=== PATIENT | male | born 1965 | race Caucasian/White ===

== ENCOUNTER 2020-05-30 00:48 | Emergency (ER) | payer OTHER ==
[2020-05-30 01:11] VITALS: BMI 34.0
[2020-05-30 01:59] LABS: BASO % 0.5 % (0-2.0); EOS % 0.2 % (0-4.5); HEMATOCRIT 53.4 % (35.4-49); HEMOGLOBIN 17.9 GM/dL (11.7-16.9); LYMPH % 22.7 % (8-40); MCH 28.5 pg (25.7-33.7); MCHC 33.6 g/dl (32.0-35.9); MEAN CELL VOLUME 84.9 fl (80-96); MEAN PLT VOLUME 8.7 fl (7.5-11.1); MONO % 5.1 % (3.8-10.2); NEUT % 71.5 % (42.8-82.8); PLATELET COUNT 294 K/MM3 (134-434); WHITE BLOOD COUNT 6.7 K/mm3 (4.0-10.0)
--- NOTE | 2020-05-30 02:01 | PDOC ---
History of Present Illness - General Chief Complaint: Chest Pain Stated Complaint: INTOX Time Seen by Provider: 05/30/20 01:21 - History of Present Illness Initial Comments: History obtained via patient and family. Jose M Potts is a 54 y/o male with PMH significant for HTN (not on any medications) presenting to the ED with 3 weeks of chest pain. Describes the pain as pressure-like in sensation. Pain is on the left side of the chest. No pleuritic chest pain. Pain is non reproducible. Drank 4 pints of whiskey last night. No shortness of breath. No headache/dizziness. No nausea/vomiting. No cough. No fever/chills. No leg swelling. No abd pain. No diarrhea/constipation. SocHx: never smoker Past History - Medical History Allergies/Adverse Reactions: Allergies Allergy/AdvReac Type Severity Reaction Status Date / Time No Known Allergies Allergy Verified 05/30/20 02:39 Home Medications: Ambulatory Orders Valsartan [Diovan] 40 mg PO DAILY #30 tablet 05/30/20 COPD: No - Immunization History Immunization Up to Date: Yes - Psycho-Social/Smoking History Smoking History: Never smoked Have you smoked in the past 12 months: No Information on smoking cessation initiated: No - Substance Abuse Hx (Audit-C & DAST Scrn) How often the patient has a drink containing alcohol: 2-4 times / month How often the patient has six or more drinks on one occasion: Less than monthly Score: In Men: 4 or > Positive; In Women: 3 or > Positive: 3 Screen Result (Pos requires Nsg. Audit-10AR): Negative In the last yr the pt used illegal drug/Rx for NonMed reason: No Score: Yes response is considered Positive: 0 Screen Result (Positive result requires Nsg. DAST-10): Negative Review of Systems - Review of Systems Comments:: GENERAL/CONSTITUTIONAL: No fever or chills. No weakness._ HEAD, EYES, EARS, NOSE AND THROAT: No change in vision. No change in hearing. No sore throat._ CARDIOVASCULAR: Reports chest pain. No shortness of breath_ RESPIRATORY: Denies cough, hemoptysis_ GASTROINTESTINAL: No nausea, vomiting, diarrhea or constipation._ GENITOURINARY: No dysuria, frequency, or change in urination._ MUSCULOSKELETAL: No joint or muscle swelling or pain. No neck or back pain._ SKIN: No rash_ NEUROLOGIC: No headache, vertigo, loss of consciousness, or change in strength/sensation._ ENDOCRINE: No increased thirst. No abnormal weight change_ HEMATOLOGIC/LYMPHATIC: No anemia, easy bleeding, or history of blood clots._ ALLERGIC/IMMUNOLOGIC: No hives or skin allergy._ *Physical Exam - Vital Signs Last Vital Signs Temp Pulse Resp BP Pulse Ox 98.6 F 95 H 19 152/102 H 97 05/30/20 05:01 05/30/20 05:01 05/30/20 05:01 05/30/20 05:01 05/30/20 05:01 - Physical Exam GENERAL: Awake, alert, and oriented to person/place/time, in no acute distress_ HEAD: No signs of trauma, normocephalic, atraumatic _ EYES: PERRLA, EOMI, sclera anicteric, conjunctiva clear_ ENT: Hearing grossly normal, nares patent, oropharynx clear without exudates. No uvular deviation. Moist mucosa_ NECK: Normal ROM, supple, no lymphadenopathy, JVD, or masses_ CHEST: No obvious trauma. No TTP. No bruising or erythema or rash. LUNGS: No distress, speaks in full sentences, clear to auscultation bilaterally _ HEART: Regular rate and rhythm, normal S1 and S2, no murmurs appreciated, peripheral pulses normal and equal bilaterally._ ABDOMEN: Soft, nontender, normoactive bowel sounds. No guarding, no rebound. No masses_ EXTREMITIES: Normal inspection, Normal range of motion, no edema. No clubbing or cyanosis_ NEUROLOGICAL: Cranial nerves II through XII grossly intact. Normal speech, normal gait, no focal sensorimotor deficits _ SKIN: Warm, Dry, normal turgor, no rashes or lesions noted_ ED Treatment Course - LABORATORY CBC & Chemistry Diagram: 05/30/20 01:26 05/30/20 01:26 - ADDITIONAL ORDERS Additional order review: 05/30/20 01:26 RBC 6.30 H MCV 84.9 MCHC 33.6 RDW 14.0 MPV 8.7 Neutrophils % 71.5 Lymphocytes % 22.7 Monocytes % 5.1 Eosinophils % 0.2 Basophils % 0.5 - RADIOLOGY Radiology Studies Ordered: Category Date Time Status CHEST X-RAY PORTABLE* [RAD] Stat Radiology 05/30/20 01:29 Completed - Medications Given in the ED: ED Medications Discontinued Medications Generic Name Dose Route Start Last Admin Trade Name Janneth PRN Reason Stop Dose Admin Sodium Chloride 1,000 ml 05/30/20 02:37 05/30/20 03:16 Normal Saline - IV 05/30/20 02:38 1,000 ml ONCE ONE Administration Valsartan 40 mg 05/30/20 03:15 05/30/20 03:12 Diovan - PO 05/30/20 03:16 40 mg ONCE ONE Administration Medical Decision Making - Medical Decision Making 05/30/20 02:26 54M presenting today with left sided pressure like chest pain. No shortness of breath. 05/30/20 02:27 EKG shows 98 bpm, NSR, QTc 480, no ST elevation, no axis deviation. 05/30/20 03:20 Labs reviewed. Laboratory Last Values WBC 6.7 K/mm3 (4.0-10.0) 05/30/20 01:26 RBC 6.30 M/mm3 (4.00-5.60) H 05/30/20 01:26 Hgb 17.9 GM/dL (11.7-16.9) H 05/30/20 01:26 Hct 53.4 % (35.4-49) H 05/30/20 01:26 MCV 84.9 fl (80-96) 05/30/20 01:26 MCH 28.5 pg (25.7-33.7) 05/30/20 01:26 MCHC 33.6 g/dl (32.0-35.9) 05/30/20 01:26 RDW 14.0 % (11.9-15.9) 05/30/20 01:26 Plt Count 294 K/MM3 (134-434) 05/30/20 01:26 MPV 8.7 fl (7.5-11.1) 05/30/20 01:26 Absolute Neuts (auto) 4.8 K/mm3 (1.5-8.0) 05/30/20 01:26 Neutrophils % 71.5 % (42.8-82.8) 05/30/20 01:26 Lymphocytes % 22.7 % (8-40) 05/30/20 01:26 Monocytes % 5.1 % (3.8-10.2) 05/30/20 01:26 Eosinophils % 0.2 % (0-4.5) 05/30/20 01:26 Basophils % 0.5 % (0-2.0) 05/30/20 01:26 Nucleated RBC % 0 % (0-0) 05/30/20 01:26 PT with INR 10.80 SEC (9.7-13.0) 05/30/20 01:26 INR 0.92 (0.83-1.09) 05/30/20 01:26 PTT (Actin FS) 26.2 SECONDS (25.2-36.5) 05/30/20 01:26 Sodium 139 mmol/L (136-145) 05/30/20 01:26 Potassium 3.9 mmol/L (3.5-5.1) 05/30/20 01:26 Chloride 104 mmol/L (98-107) 05/30/20 01:26 Carbon Dioxide 26 mmol/L (21-32) 05/30/20 01:26 Anion Gap 9 MMOL/L (8-16) 05/30/20 01:26 BUN 9.8 mg/dL (7-18) 05/30/20 01:26 Creatinine 1.2 mg/dL (0.55-1.3) 05/30/20 01:26 Est GFR (CKD-EPI)AfAm 80.10 05/30/20 01:26 Est GFR (CKD-EPI)NonAf 69.11 05/30/20 01:26 Random Glucose 154 mg/dL (74-106) H 05/30/20 01:26 Calcium 9.3 mg/dL (8.5-10.1) 05/30/20 01:26 Total Bilirubin 0.5 mg/dL (0.2-1) 05/30/20 01:26 AST 23 U/L (15-37) 05/30/20 01:26 ALT 55 U/L (13-61) 05/30/20 01:26 Alkaline Phosphatase 59 U/L (45-117) 05/30/20 01:26 Creatine Kinase 279 U/L (26-308) 05/30/20 01:26 Creatine Kinase Index 0.7 % (0.0-5.0) 05/30/20 01:26 CK-MB (CK-2) 2.0 ng/mL (0.5-3.6) 05/30/20 01:26 Troponin I < 0.02 ng/ml (0.00-0.05) 05/30/20 01:26 Total Protein 8.2 g/dl (6.4-8.2) 05/30/20 01:26 Albumin 4.5 g/dl (3.4-5.0) 05/30/20 01:26 05/30/20 04:31 CXR negative for acute chest pathology. Plan to d/c home with PCP f/u. All questions answered. Return precautions given. Pt verbalized understanding and agreement with plan. Discharge - Discharge Information Problems reviewed: Yes Clinical Impression/Diagnosis: Chest pain Condition: Stable Disposition: HOME - Admission No - Additional Discharge Information Prescriptions: Valsartan [Diovan] 40 mg PO DAILY #30 tablet - Follow up/Referral Referrals: [facility] [place] [facility] at [place] [Provider Group] - Patient Discharge Instructions Patient Printed Discharge Instructions: DI for Chest Pain Additional Instructions: Please make a follow up appointment with your primary care physician. If you experience any new, worsening, or concerning symptoms, including worsening chest pain, shortness of breath, cough, dizziness, or any other concerns, please return to the emergency department. - Post Discharge Activity
[2020-05-30 02:10] LABS: INR 0.92 (0.83-1.09); PROTHROMBIN TIME (PATIENT) 10.8 SEC (9.7-13.0)
[2020-05-30 02:12] LABS: ACTIVATED PTT 26.2 SECONDS (25.2-36.5)
[2020-05-30 02:22] LABS: ALBUMIN 4.5 g/dl (3.4-5.0); ALK PHOS 59 U/L (45-117); ANION GAP 9 MMOL/L (8-16); BILIRUBIN,TOTAL 0.5 mg/dL (0.2-1); BLOOD UREA NITROGEN 9.8 mg/dL (7-18); CALCIUM 9.3 mg/dL (8.5-10.1); CHLORIDE 104 mmol/L (98-107); CO2 26 mmol/L (21-32); CREATININE 1.2 mg/dL (0.55-1.3); GLUCOSE,RANDOM 154 mg/dL (74-106); POTASSIUM 3.9 mmol/L (3.5-5.1); SGOT/AST 23 U/L (15-37); SGPT/ALT 55 U/L (13-61); SODIUM 139 mmol/L (136-145); TOT PROT 8.2 g/dl (6.4-8.2)
[2020-05-30] MEDS ORDERED: SODIUM CHLORIDE 0.9% 500 ML INFUS.BAG IV ONE (02:37)
[2020-05-30] MEDS ORDERED: VALSARTAN 80 MG TABLET (UD) ONE (03:10)
[2020-05-30] MEDS ORDERED: VALSARTAN 40 MG TABLET (FP) PO ONE (03:15)
[2020-05-30 05:03] VITALS: BP 152/102; PULSE 95; TEMP 98.6
--- NOTE | 2020-05-30 14:03 | EKG ---
Test Reason : Blood Pressure : / mmHG Vent. Rate : 098 BPM Atrial Rate : 098 BPM P-R Int : 176 ms QRS Dur : 098 ms QT Int : 376 ms P-R-T Axes : 046 081 041 degrees QTc Int : 480 ms NORMAL SINUS RHYTHM PROLONGED QT ABNORMAL ECG NO PREVIOUS ECGS AVAILABLE Confirmed by FIDELIA KOENIG MD ([id number]) on 05/30/2020 2:02:37 PM Referred By: Confirmed By:FIDELIA KOENIG MD
--- NOTE | 2020-06-12 02:09 | PDOC ---
Documentation entered by Eileen Ashford SCRIBE, acting as scribe for Alyssa Lomeli MD. Alyssa Lomeli MD: This documentation has been prepared by the Dejon dowling Nirvannie, SCRIBE, under my direction and personally reviewed by me in its entirety. I confirm that the documentation accurately reflects all work, treatment, procedures, and medical decision making performed by me. Attending Attestation - Resident Resident Name: TerellCalos - ED Attending Attestation I have performed the following: I have examined & evaluated the patient, The case was reviewed & discussed with the resident, I agree w/resident's findings & plan, Exceptions are as noted - HPI HPI: 05/30/20 02:00 The patient is 54 year old male with a significant past medical history of HTN (not on medications) who presents to the ED with 3 weeks of left sided, pressure-like chest pain. Patient notes his pain to be exacerbated after drinking 4 pt containers of whiskey. While in the ED, patient is intoxicated. 05/30/20 02:32 Pt's brother tells us that he has been drinking more and more for the past 6 months. Pt will has elevated systolic and diastolic pressures. - Physicial Exam PE: 06/12/20 02:08 Agree with resident exam 06/12/20 02:09 Normal heart and lungs - Medical Decision Making 06/12/20 02:09 CXR negative for acute chest pathology. Plan to d/c home with PCP f/u. All questions answered. Return precautions given. Pt verbalized understanding and agreement with plan. Discharge - Discharge Information Problems reviewed: Yes Clinical Impression/Diagnosis: Chest pain Condition: Stable Disposition: HOME - Additional Discharge Information Prescriptions: Valsartan [Diovan] 40 mg PO DAILY #30 tablet - Follow up/Referral Referrals: [facility] [place] [facility] at [place] [Provider Group] - Patient Discharge Instructions Patient Printed Discharge Instructions: DI for Chest Pain Additional Instructions: Please make a follow up appointment with your primary care physician. If you experience any new, worsening, or concerning symptoms, including worsening chest pain, shortness of breath, cough, dizziness, or any other concerns, please return to the emergency department. - Post Discharge Activity
== END 2020-05-30 05:16 | disposition home or self-care (01) ==
LOC: JER 00:48
DX: R07.9 Chest pain, unspecified (principal)
CPT/HCPCS: 36415; 71045-TC-FY; 80053; 82550; 82553; 84484; 85025; 85610; 85730; 93005; 93010; 99284-25

== ENCOUNTER 2023-07-30 19:39 | Emergency (ER) | payer OTHER ==
[2023-07-30 19:50] VITALS: PULSE 65; RESP 18; TEMP 98.5; BMI 33.0
[2023-07-30] MEDS ORDERED: SODIUM CHLORIDE FOR INHALATION 3 ML VIAL.NEB IH ONE (21:27)
[2023-07-30] MEDS ORDERED: CARVEDILOL 25 MG TABLET (FP) PO ONE (21:29)
[2023-07-30 21:40] LABS: BASO % 0.5 % (0-2.0); EOS % 0.7 % (0-4.5); HEMATOCRIT 49.7 % (35.4-49); LYMPH % 56.4 % (8-40); MCH 28.3 pg (25.7-33.7); MCHC 34.2 g/dl (32.0-35.9); MEAN CELL VOLUME 82.7 fl (80-96); MEAN PLT VOLUME 7.9 fl (7.5-11.1); MONO % 18.1 % (3.8-10.2); NEUT % 24.3 % (42.8-82.8); PLATELET COUNT 229 10^3/uL (134-434); RDW 14.1 % (11.9-15.9); WHITE BLOOD COUNT 4.6 K/mm3 (4.0-10.0)
[2023-07-30] MEDS ORDERED: CARVEDILOL 25 MG TABLET (FP) ONE (21:40)
[2023-07-30 22:03] LABS: CALCIUM 8.5 mg/dL (8.5-10.1)
[2023-07-30 22:04] LABS: ALBUMIN 3.7 g/dl (3.4-5.0)
[2023-07-30 22:07] LABS: CREATININE 1.2 mg/dL (0.55-1.3)
[2023-07-30 22:08] LABS: BILIRUBIN,TOTAL 0.6 mg/dL (0.2-1); TOT PROT 7.3 g/dl (6.4-8.2)
[2023-07-30] MEDS ORDERED: hydrALAZINE HCL 20 MG/ML VIAL IVPUSH ONE (22:28)
[2023-07-30] MEDS ORDERED: hydrALAZINE HCL 20 MG/ML VIAL ONE (22:29)
[2023-07-30 22:54] VITALS: BP 162/96
== END 2023-07-31 00:12 | disposition home or self-care (01) ==
LOC: JER 19:39
DX: U07.1 COVID-19 (principal); I10 Essential (primary) hypertension; R09.81 Nasal congestion; R06.00 Dyspnea, unspecified; R50.9 Fever, unspecified; R07.89 Other chest pain
CPT/HCPCS: 0241U-QW; 36415; 71046-TC-FY; 80053; 84484; 85025; 93005; 93010; 99285-25

== ENCOUNTER 2024-06-11 06:01 | Emergency (ER) | payer SELFPAY ==
[2024-06-11 06:08] VITALS: TEMP 98.1; BMI 32.3
[2024-06-11 07:34] LABS: BASO % 0.4 % (0-2.0); EOS % 0.4 % (0-4.5); HEMATOCRIT 51.9 % (35.4-49); HEMOGLOBIN 17.5 GM/dL (11.7-16.9); LYMPH % 30.7 % (8-40); MCH 28.5 pg (25.7-33.7); MCHC 33.6 g/dl (32.0-35.9); MEAN CELL VOLUME 84.7 fl (80-96); MEAN PLT VOLUME 8.8 fl (7.5-11.1); MONO % 10.7 % (3.8-10.2); NEUT % 57.8 % (42.8-82.8); PLATELET COUNT 260 10^3/uL (134-434); RBC 6.13 M/mm3 (4.00-5.60); RDW 14.4 % (11.9-15.9); WHITE BLOOD COUNT 8.4 K/mm3 (4.0-10.0)
[2024-06-11 07:49] LABS: INR 0.89 (0.83-1.09); PROTHROMBIN TIME (PATIENT) 10.3 SEC (9.7-13.0)
[2024-06-11 07:52] LABS: ACTIVATED PTT 30.4 SECONDS (25.2-36.5)
[2024-06-11 08:17] LABS: POTASSIUM 4.2 mmol/L (3.5-5.1)
[2024-06-11 08:21] LABS: ALBUMIN 3.9 g/dl (3.4-5.0); BLOOD UREA NITROGEN 17.9 mg/dL (7-18)
[2024-06-11 08:23] LABS: CREATININE 1.3 mg/dL (0.55-1.3)
[2024-06-11 08:25] LABS: BILIRUBIN,TOTAL 0.7 mg/dL (0.2-1); TOT PROT 7.6 g/dl (6.4-8.2)
[2024-06-11 08:29] LABS: N-TERMINAL BNP 96.4 pg/ml (5-125)
[2024-06-11] MEDS ORDERED: amLODIPine BESYLATE 10 MG TABLET (FP) ONE (08:30)
[2024-06-11] MEDS: amLODIPine BESYLATE 10 MG TABLET (FP) PO ONE (08:35)
[2024-06-11] MEDS ORDERED: LISINOPRIL 10 MG TABLET ONE (10:06)
[2024-06-11] MEDS: LISINOPRIL 10 MG TABLET PO ONE (10:13)
[2024-06-11] MEDS ORDERED: hydrALAZINE HCL 20 MG/ML VIAL ONE (11:23)
[2024-06-11] MEDS: hydrALAZINE HCL 20 MG/ML VIAL IVPUSH ONE (11:29)
[2024-06-11 12:04] VITALS: BP 179/96; PULSE 72; RESP 18
== END 2024-06-11 12:42 | disposition home or self-care (01) ==
LOC: JER 06:01
PROC: 3E033GC Introduction of Other Therapeutic Substance into Peripheral Vein, Percutaneous Approach (ICD-10-PCS; principal; 2024-06-11)
DX: R07.89 Other chest pain (principal); I10 Essential (primary) hypertension; R20.2 Paresthesia of skin
CPT/HCPCS: 36415; 71045-TC-FY; 80053; 83880; 84484; 85025; 85610; 85730; 86850; 86900; 86901; 93005; 93010; 99285-25